=== PATIENT | male | born 1985 | race Two or more races ===

== ENCOUNTER 2018-05-01 01:47 | Emergency (ER) | payer SELFPAY ==
[~2018-05-01] VITALS: Ht 175.3 cm; Wt 72.7 kg
[2018-05-01] MEDS ORDERED: NALOXONE HCL 1 MG/ML 2 ML SYG ONE (01:57)
[2018-05-01 02:09] LABS: GLUCOSE,POINT OF CARE 104 MG/DL (70-110)
[2018-05-01] MEDS ORDERED: SODIUM CHLORIDE 0.9% 1,000 ML IV ONE ×3 (02:15→11:00)
[2018-05-01] MEDS ORDERED: NALOXONE HCL 1 MG/ML 2 ML SYG IVP ONE (02:15)
[2018-05-01 02:35] LABS: BASOPHILS % (AUTO) 0.3 % (0.0-2.0); EOSINOPHILS % (AUTO) 0.3 % (1.0-6.0); HEMATOCRIT 44.1 % (41-53); HEMOGLOBIN 15.8 g/dL (13.5-17.5); LYMPHOCYTES # (AUTO) 1.3 K/uL (1.0-4.8); LYMPHOCYTES % (AUTO) 11.1 % (22.0-44.0); MEAN CORPUSCULAR HEMOGLOBIN 32.6 pg (26.0-34.0); MEAN CORPUSCULAR HGB CONC 35.8 G/dL (31.0-37.0); MEAN CORPUSCULAR VOLUME 91 fL (80-100); MONOCYTES # (AUTO) 0.7 K/uL (0.1-1.0); MONOCYTES % (AUTO) 5.7 % (2.0-9.0); NEUTROPHILS # (AUTO) 9.5 K/uL (1.8-7.7); NEUTROPHILS % (AUTO) 82.6 % (40.0-70.0); PLATELET COUNT (AUTO) 259 K/uL (150-450); RED BLOOD CELL COUNT(AUTO) 4.85 MIL/uL (4.50-5.90); RED CELL DISTRIBUTION WIDTH 13.4 % (11.5-14.5)
[2018-05-01 02:44] LABS: AMPHET/METH SCREEN,URINE POSITIVE (NEGATIVE); BARBITURATE SCREEN, URINE NEGATIVE (NEGATIVE); BENZODIAZEPINES SCREEN,URINE NEGATIVE (NEGATIVE); CANNABINOID SCREEN,URINE POSITIVE (NEGATIVE); COCAINE SCREEN,URINE NEGATIVE (NEGATIVE); METHADONE SCREEN, URINE NEGATIVE (NEGATIVE); OPIATE SCREEN,URINE POSITIVE (NEGATIVE); PHENCYCLIDINE SCREEN,URINE NEGATIVE (NEGATIVE)
[2018-05-01 02:49] LABS: ANION GAP 14 mmol/L (8-16); CALCIUM, TOTAL 8.5 mg/dL (8.8-10.5); CARBON DIOXIDE 23 mmol/L (22-29); CHLORIDE 99 mmol/L (98-107); CREATININE 1.57 mg/dL (0.60-1.30); GLOMERULAR FILTR. RATE CALC 51 mL/min (>60); GLUCOSE,RANDOM 104 mg/dL (70-110); POTASSIUM 3.3 mmol/L (3.5-5.1); SODIUM SERUM 136 mmol/L (136-145); UREA NITROGEN, BLOOD 34 mg/dL (7-18)
[2018-05-01 02:53] LABS: SALICYLATE < 2.8 mg/dL (2.8-20.0)
[2018-05-01 02:56] LABS: ALANINE AMINOTRANSFERASE 50 U/L (12-78); ALBUMIN 3.7 g/dL (3.4-5.0); ALKALINE PHOSPHATASE 92 U/L (46-116); ASPARTATE AMINOTRANSFERASE 28 U/L (15-37); BILIRUBIN,TOTAL 1.5 mg/dL (0.1-1.0); TOTAL PROTEIN, SERUM 6.9 g/dL (6.4-8.2)
[2018-05-01 02:57] LABS: ACETAMINOPHEN < 2 mcg/mL (10-30)
[2018-05-01 11:27] VITALS: BP 100/57
== END 2018-05-01 11:36 | disposition home or self-care (01) ==
LOC: EMS 01:47
DX: R41.82 Altered mental status, unspecified (principal); F15.10 Other stimulant abuse, uncomplicated; F12.10 Cannabis abuse, uncomplicated; F11.90 Opioid use, unspecified, uncomplicated
CPT/HCPCS: 36415; 51702; 80053; 80307; 82962; 85025; 93005; 96374; 99291; G0480 ×2; G0481; J2310; J7030

== ENCOUNTER 2018-08-25 13:53 | Emergency (ER) | payer SELFPAY ==
[~2018-08-25] VITALS: Ht 172.7 cm; Wt 72.7 kg
[2018-08-25 16:48] LABS: GLUCOSE,POINT OF CARE 97 MG/DL (70-110)
[2018-08-25 17:37] LABS: BASOPHILS % (AUTO) 0.4 % (0.0-2.0); HEMATOCRIT 44.9 % (41-53); HEMOGLOBIN 16.1 g/dL (13.5-17.5); LYMPHOCYTES # (AUTO) 2.7 K/uL (1.0-4.8); LYMPHOCYTES % (AUTO) 45.8 % (22.0-44.0); MEAN CORPUSCULAR HEMOGLOBIN 34.2 pg (26.0-34.0); MEAN CORPUSCULAR HGB CONC 35.7 G/dL (31.0-37.0); MEAN CORPUSCULAR VOLUME 96 fL (80-100); MONOCYTES # (AUTO) 0.5 K/uL (0.1-1.0); MONOCYTES % (AUTO) 8.2 % (2.0-9.0); NEUTROPHILS # (AUTO) 2.6 K/uL (1.8-7.7); NEUTROPHILS % (AUTO) 43.6 % (40.0-70.0); PLATELET COUNT (AUTO) 265 K/uL (150-450); RED BLOOD CELL COUNT(AUTO) 4.69 MIL/uL (4.50-5.90); RED CELL DISTRIBUTION WIDTH 13.1 % (11.5-14.5)
[2018-08-25 17:40] LABS: ANION GAP 5 mmol/L (8-16); CALCIUM, TOTAL 8.3 mg/dL (8.8-10.5); CARBON DIOXIDE 29 mmol/L (22-29); CHLORIDE 103 mmol/L (98-107); CREATININE 0.79 mg/dL (0.60-1.30); GLOMERULAR FILTR. RATE CALC > 60 mL/min (>60); GLUCOSE,RANDOM 99 mg/dL (70-110); POTASSIUM 4.3 mmol/L (3.5-5.1); SODIUM SERUM 137 mmol/L (136-145); UREA NITROGEN, BLOOD 20 mg/dL (7-18)
[2018-08-25 17:52] VITALS: BP 131/61
[2018-08-25 17:53] LABS: ACETAMINOPHEN < 2 mcg/mL (10-30); ALANINE AMINOTRANSFERASE 105 U/L (12-78); ALBUMIN 3.5 g/dL (3.4-5.0); ALKALINE PHOSPHATASE 96 U/L (46-116); ASPARTATE AMINOTRANSFERASE 64 U/L (15-37); BILIRUBIN,TOTAL 0.7 mg/dL (0.1-1.0); HCG,QUANTITATIVE < 1 mIU/mL (0-6); LIPASE 148 U/L (73-393); TOTAL PROTEIN, SERUM 6.9 g/dL (6.4-8.2)
[2018-08-25 18:54] LABS: SALICYLATE 0.3 mg/dL (2.8-20.0)
== END 2018-08-25 18:51 | disposition left against medical advice (07) ==
LOC: EMS 13:54
DX: T50.901A Poisoning by unspecified drugs, medicaments and biological substances, accidental (unintentional), initial encounter (principal); Y92.89 Other specified places as the place of occurrence of the external cause
CPT/HCPCS: 36415; 80053; 82948; 82962; 83690; 84702; 85025; 93005; 99285; G0480 ×2; G0481

== ENCOUNTER 2018-09-17 18:21 | Emergency (ER) | payer SELFPAY ==
[~2018-09-17] VITALS: Ht 175.3 cm; Wt 79.5 kg
[2018-09-17 19:26] LABS: ANION GAP 4 mmol/L (8-16); CALCIUM, TOTAL 8.7 mg/dL (8.8-10.5); CARBON DIOXIDE 33 mmol/L (22-29); CHLORIDE 99 mmol/L (98-107); CREATININE 0.82 mg/dL (0.60-1.30); GLOMERULAR FILTR. RATE CALC > 60 mL/min (>60); GLUCOSE,RANDOM 111 mg/dL (70-110); POTASSIUM 4.1 mmol/L (3.5-5.1); SODIUM SERUM 136 mmol/L (136-145); UREA NITROGEN, BLOOD 15 mg/dL (7-18)
[2018-09-17 19:27] LABS: BASOPHILS % (AUTO) 0.1 % (0.0-2.0); EOSINOPHILS % (AUTO) 0.7 % (1.0-6.0); HEMATOCRIT 52.5 % (41-53); HEMOGLOBIN 18.4 g/dL (13.5-17.5); LYMPHOCYTES # (AUTO) 0.6 K/uL (1.0-4.8); LYMPHOCYTES % (AUTO) 6.5 % (22.0-44.0); MEAN CORPUSCULAR HEMOGLOBIN 33.7 pg (26.0-34.0); MEAN CORPUSCULAR HGB CONC 34.9 G/dL (31.0-37.0); MEAN CORPUSCULAR VOLUME 96 fL (80-100); MONOCYTES # (AUTO) 0.3 K/uL (0.1-1.0); MONOCYTES % (AUTO) 3.4 % (2.0-9.0); NEUTROPHILS % (AUTO) 89.3 % (40.0-70.0); PLATELET COUNT (AUTO) 244 K/uL (150-450); RED BLOOD CELL COUNT(AUTO) 5.44 MIL/uL (4.50-5.90); RED CELL DISTRIBUTION WIDTH 12.9 % (11.5-14.5)
[2018-09-17 19:32] LABS: ALANINE AMINOTRANSFERASE 131 U/L (12-78); ALBUMIN 3.9 g/dL (3.4-5.0); ALKALINE PHOSPHATASE 105 U/L (46-116); ASPARTATE AMINOTRANSFERASE 50 U/L (15-37); BILIRUBIN,TOTAL 0.6 mg/dL (0.1-1.0); LIPASE 70 U/L (73-393); TOTAL PROTEIN, SERUM 7.6 g/dL (6.4-8.2)
[2018-09-17] MEDS ORDERED: KETOROLAC TROMETHAMINE 30 MG/ML VIAL IVP ONE (20:15)
[2018-09-17] MEDS ORDERED: SODIUM CHLORIDE 0.9% 1,000 ML IV ONE (20:15)
[2018-09-17] MEDS ORDERED: ONDANSETRON HCL 4 MG/2 ML VIAL IVP ONE (20:15)
[2018-09-17 20:41] LABS: APPEARANCE,URINE CLEAR (CLEAR); BILIRUBIN,URINE NEGATIVE (NEGATIVE); GLUCOSE, URINE (UA) NEGATIVE (NEGATIVE); KETONES,URINE NEGATIVE (NEGATIVE); LEUKOCYTE ESTERASE ,URINE NEGATIVE (NEGATIVE); NITRATE,URINE NEGATIVE (NEGATIVE); OCCULT BLOOD,URINE NEGATIVE (NEGATIVE); PH,URINE 5.5 (5.0-8.0); PROTEIN,URINE NEGATIVE (NEGATIVE); UROBILINOGEN,URINE 0.2 mg/dL (<=1.0)
[2018-09-17 20:46] LABS: AMPHET/METH SCREEN,URINE POSITIVE (NEGATIVE); BARBITURATE SCREEN, URINE NEGATIVE (NEGATIVE); BENZODIAZEPINES SCREEN,URINE NEGATIVE (NEGATIVE); CANNABINOID SCREEN,URINE NEGATIVE (NEGATIVE); COCAINE SCREEN,URINE NEGATIVE (NEGATIVE); METHADONE SCREEN, URINE NEGATIVE (NEGATIVE); OPIATE SCREEN,URINE NEGATIVE (NEGATIVE)
[2018-09-17 20:52] LABS: PHENCYCLIDINE SCREEN,URINE NEGATIVE (NEGATIVE)
[2018-09-17 21:50] VITALS: BP 127/88
== END 2018-09-17 22:00 | disposition home or self-care (01) ==
LOC: EMS 18:21
DX: K52.9 Noninfective gastroenteritis and colitis, unspecified (principal); R79.89 Other specified abnormal findings of blood chemistry; F15.10 Other stimulant abuse, uncomplicated; F17.210 Nicotine dependence, cigarettes, uncomplicated
CPT/HCPCS: 36415; 74176; 80053; 80307; 81003; 83690; 85025; 96361; 96374; 96375; 99284; 99406; J1885; J2405; J7030

== ENCOUNTER 2019-06-18 18:10 | Emergency (ER) | payer SELFPAY ==
[~2019-06-18] VITALS: Ht 175.3 cm; Wt 75.0 kg
[2019-06-18] MEDS ORDERED: AZITHROMYCIN 250 MG TABLET PO ONE (18:45)
[2019-06-18] MEDS ORDERED: IBUPROFEN 800 MG TABLET PO ONE (18:45)
[2019-06-18] MEDS ORDERED: LIDOCAINE/PF 1% 2 ML VIAL IM ONE (18:45)
[2019-06-18] MEDS ORDERED: CefTRIAXone SODIUM 1 GM/VIAL IM ONE (18:45)
[2019-06-18 19:44] VITALS: BP 121/78
== END 2019-06-18 19:50 | disposition home or self-care (01) ==
LOC: EMS 18:11
DX: A64 Unspecified sexually transmitted disease (principal); R36.9 Urethral discharge, unspecified; F17.210 Nicotine dependence, cigarettes, uncomplicated; F15.90 Other stimulant use, unspecified, uncomplicated
CPT/HCPCS: 96372; 99283; 99406; J0696; J3490

== ENCOUNTER 2019-07-12 09:06 | Emergency (ER) | payer MEDICAID ==
[~2019-07-12] VITALS: Ht 177.8 cm; Wt 65.9 kg
[2019-07-12 09:08] VITALS: BP 149/108
[2019-07-12] MEDS ORDERED: AZITHROMYCIN 250 MG TABLET PO ONE (09:45)
[2019-07-12] MEDS ORDERED: CefTRIAXone SODIUM 1 GM/VIAL IM ONE ×2 (09:45)
== END 2019-07-12 09:57 | disposition home or self-care (01) ==
LOC: EMS 09:08
DX: N34.2 Other urethritis (principal); F17.210 Nicotine dependence, cigarettes, uncomplicated; F12.90 Cannabis use, unspecified, uncomplicated; F19.90 Other psychoactive substance use, unspecified, uncomplicated
CPT/HCPCS: 96372; 99283; J0696